=== PATIENT | male | born 1975 | race American Indian/Alaskan Native ===

== ENCOUNTER 2017-03-01 16:16 | Emergency (ER) | payer MEDICAID ==
[2017-03-01 16:22] VITALS: TEMP 97.6; O2SAT 100
[2017-03-01] MEDS ORDERED: Albuterol-Ipratrop 3 mg / 0.5 (3 ml) UD INH STA (16:24)
[2017-03-01] MEDS ORDERED: Albuterol-Ipratrop 3 mg / 0.5 (3 ml) UD ONE ×2 (16:27→17:30)
[2017-03-01] MEDS ORDERED: Albuterol 0.083% Inhal Sol (2.5 mg/3 mL) UD INH STA (17:27)
--- NOTE | 2017-03-01 17:30 | C.PDOC ---
History Of Present Illness 42 y/o male presents to ED c/o shortness of breath, and wheezing that started 2 hours ago. Pt states he ran out of his inhaler and is requesting prescription for it. Note, pt did not take his BP meds today. Denies cough, chest pain, or fever. Time Seen by Provider: 03/01/17 17:23 Chief Complaint (Nursing): Shortness Of Breath History Per: Patient History/Exam Limitations: no limitations Past Medical History Reviewed: Historical Data, Nursing Documentation, Vital Signs Vital Signs: Last Vital Signs Temp 97.6 F 03/01/17 16:19 Pulse 88 03/01/17 16:19 Resp 18 03/01/17 16:19 BP 158/106 H 03/01/17 16:19 Pulse Ox 100 03/01/17 16:19 - Medical History PMH: Asthma, Back Problems, HTN - [facility] Procedures OTHER GROUP THERAPY (08/27/12) PSYCHIAT DRUG THERAP NEC (08/27/12) Family History: States: Unknown Family Hx - Social History Hx Tobacco Use: Yes (smokes 4 cig/day for 20 years. ) Hx Alcohol Use: No Hx Substance Use: No - Immunization History Hx Tetanus Toxoid Vaccination: Yes Hx Influenza Vaccination: No Hx Pneumococcal Vaccination: No Review Of Systems Except As Marked, All Systems Reviewed And Found Negative. Constitutional: Negative for: Fever, Chills Cardiovascular: Negative for: Chest Pain, Palpitations Respiratory: Positive for: Shortness of Breath, Wheezing. Negative for: Cough Physical Exam - Physical Exam Appears: Non-toxic, No Acute Distress Skin: Normal Color, Warm, Dry Head: Atraumatic, Normacephalic Eye(s): bilateral: Normal Inspection Cardiovascular: Rhythm Regular, No Murmur Respiratory: No Rales, Rhonchi (scattered), Wheezing (scattered) Gastrointestinal/Abdominal: Soft, No Tenderness Extremity: Normal ROM, No Pedal Edema Neurological/Psych: Oriented x3, Normal Speech ED Course And Treatment O2 Sat by Pulse Oximetry: 100 Pulse Ox Interpretation: Normal Disposition - Disposition - Scribe Statement The provider has reviewed the documentation as recorded by the Scribe José Luis metz All medical record entries made by the Scribe were at my direction and personally dictated by me. I have reviewed the chart and agree that the record accurately reflects my personal performance of the history, physical exam, medical decision making, and the department course for this patient. I have also personally directed, reviewed, and agree with the discharge instructions and disposition.
--- NOTE | 2017-03-01 17:33 | C.PDOC ---
Time Seen by Provider: 03/01/17 17:23 Chief Complaint (Nursing): Shortness Of Breath Past Medical History Vital Signs: Last Vital Signs Temp 97.6 F 03/01/17 16:19 Pulse 88 03/01/17 16:19 Resp 18 03/01/17 16:19 BP 158/106 H 03/01/17 16:19 Pulse Ox 100 03/01/17 16:19 - Medical History PMH: Asthma, Back Problems, HTN - [facility] Procedures OTHER GROUP THERAPY (08/27/12) PSYCHIAT DRUG THERAP NEC (08/27/12) Family History: States: Unknown Family Hx - Social History Hx Tobacco Use: Yes (smokes 4 cig/day for 20 years. ) Hx Alcohol Use: No Hx Substance Use: No - Immunization History Hx Tetanus Toxoid Vaccination: Yes Hx Influenza Vaccination: No Hx Pneumococcal Vaccination: No ED Course And Treatment O2 Sat by Pulse Oximetry: 100 Disposition Counseled Patient/Family Regarding: Diagnosis, Smoking Cessation - Disposition Disposition Time: 17:45 Condition: STABLE Instructions: Asthma (ED), Hypertension (ED) - Clinical Impression Clinical Impression: Asthma, Hypertension
[2017-03-01] MEDS ORDERED: Albuterol 0.083% Inhal Sol (2.5 mg/3 mL) UD ONE (17:40)
[2017-03-01 18:07] VITALS: BP 149/83; PULSE 66; RESP 12
== END 2017-03-01 18:38 | disposition home or self-care (01) ==
LOC: C.ER 16:16
DX: J45.909 Unspecified asthma, uncomplicated (principal); I10 Essential (primary) hypertension; F17.210 Nicotine dependence, cigarettes, uncomplicated

== ENCOUNTER 2017-09-17 07:22 | Emergency (ER) | payer MEDICAID ==
[2017-09-17 07:36] VITALS: O2SAT 94
--- NOTE | 2017-09-17 07:53 | C.PDOC ---
History Of Present Illness 42-YEAR-OLD MALE, PRESENTS TO THE EMERGENCY DEPARTMENT [facility] COMPLAINTS OF ASTHMA EXAC THIS MORNING. PS HAS NO MDI DUE TO LACK OF INSURANCE "I HAVENT HAD A PUMP AT HOME IN A WHILE". NORMALLY USES DAILY. [place] [facility] [place] [facility] [place]. +PLEURITIC CP EXAM MILD DIST NONTOXIC HEENT NEG LUNGS DECR BS B/L OCC EXP WHEEZE +RETRACTION SPEAKING FULL SENTENCES CV RRR REMAINDE NEG Time Seen by Provider: 09/17/17 07:46 Chief Complaint (Nursing): Shortness Of Breath History Per: Patient History/Exam Limitations: no limitations Current Symptoms Are (Timing): Still Present Past Medical History Reviewed: Historical Data, Nursing Documentation, Vital Signs Vital Signs: Last Vital Signs Temp 98.1 F 09/17/17 09:54 Pulse 72 09/17/17 09:54 Resp 17 09/17/17 09:54 BP 139/80 09/17/17 09:54 Pulse Ox 94 L 09/17/17 10:11 - Medical History PMH: Asthma, Back Problems, HTN - [facility] Procedures OTHER GROUP THERAPY (08/27/12) PSYCHIAT DRUG THERAP NEC (08/27/12) Family History: States: No Known Family Hx - Social History Hx Tobacco Use: Yes (smokes 4 cig/day for 20 years. ) Hx Alcohol Use: Yes Hx Substance Use: No - Immunization History Hx Tetanus Toxoid Vaccination: Yes Hx Influenza Vaccination: No Hx Pneumococcal Vaccination: No Review Of Systems Constitutional: Negative for: Fever, Chills Cardiovascular: Negative for: Chest Pain, Palpitations Respiratory: Positive for: Shortness of Breath, Wheezing Gastrointestinal: Negative for: Nausea, Vomiting Musculoskeletal: Negative for: Back Pain Skin: Negative for: Rash Neurological: Negative for: Weakness, Numbness, Headache, Dizziness Physical Exam - Physical Exam Appears: Non-toxic, No Acute Distress Skin: Normal Color, Warm, Dry, No Rash Head: Atraumatic, Normacephalic Eye(s): bilateral: Normal Inspection Nose: Normal Oral Mucosa: Moist Lips: Normal Appearing Neck: Normal ROM Chest: Symmetrical Cardiovascular: Rhythm Regular, No Murmur Respiratory: Decreased Breath Sounds, No Accessory Muscle Use, Wheezing (B/L expiratory), Other (+RETRACTION SPEAKING FULL SENTENCES) Extremity: Normal ROM, No Pedal Edema, No Deformity, No Swelling Neurological/Psych: Oriented x3, Normal Speech ED Course And Treatment ECG: Interpreted By Me, Viewed By Me ECG Rhythm: Sinus Rhythm ECG Interpretation: No Acute Changes Rate From EC O2 Sat by Pulse Oximetry: 94 Pulse Ox Interpretation: Abnormal Reevaluation Time: 09:46 Reassessment Condition: Improved (PF 550. NARD PS FEELS BETTER COMPARED TO INITIAL) Disposition Counseled Patient/Family Regarding: Diagnosis, Need For Followup, Rx Given - Disposition Referrals: YOUR,PMD [Other] [facility] [Outside] [facility] [Outside] Disposition: HOME/ ROUTINE Disposition Time: 09:47 Condition: IMPROVED Prescriptions: Albuterol HFA [Ventolin HFA 90 mcg/actuation (8 g)] 1 puff IH Q4 #1 inhaler predniSONE [Prednisone] 60 mg PO DAILY #12 tab Instructions: Asthma, Adult (DC) Forms: [employer] (Libyan) - Clinical Impression Clinical Impression: Asthma exacerbation - Scribe Statement The provider has reviewed the documentation as recorded by the Scribe (Bibi Pacheco) All medical record entries made by the Scribe were at my direction and personally dictated by me. I have reviewed the chart and agree that the record accurately reflects my personal performance of the history, physical exam, medical decision making, and the department course for this patient. I have also personally directed, reviewed, and agree with the discharge instructions and disposition.
[2017-09-17] MEDS ORDERED: Albuterol-Ipratrop 3 mg / 0.5 (3 ml) UD ONE (07:55)
[2017-09-17] MEDS: Albuterol-Ipratrop 3 mg / 0.5 (3 ml) UD IH SCH ×3 (07:57→08:29)
[2017-09-17 09:56] VITALS: BP 139/80; PULSE 72; RESP 17; TEMP 98.1
--- NOTE | 2017-09-18 23:09 | CARD ---
APPROVED REPORT EKG Measurement Heart [id number] [id number] <Conclusion> Normal sinus rhythm Normal ECG
== END 2017-09-17 09:53 | disposition home or self-care (01) ==
LOC: C.ER 07:22
DX: J45.901 Unspecified asthma with (acute) exacerbation (principal); I10 Essential (primary) hypertension; F17.210 Nicotine dependence, cigarettes, uncomplicated

== ENCOUNTER → 2017-11-11 01:19 | Emergency (ER) | payer SELFPAY | END | disposition left against medical advice (07) | LOC: C.ER 01:19 | DX: Z02.89 Encounter for other administrative examinations (principal); R06.02 Shortness of breath ==

== ENCOUNTER 2018-01-12 04:21 | Emergency (ER) | payer SELFPAY ==
--- NOTE | 2018-01-12 05:21 | C.PDOC ---
History Of Present Illness 42 year old male patient with PMHx of asthma presents to the ER c/o nasal congestion for a few hours. Patient reports he also has cough. Patient denies fever, nausea, vomiting, diarrhea, abdominal pain, sob, and chest pain. Time Seen by Provider: 01/12/18 04:29 Chief Complaint (Nursing): ENT Problem History Per: Patient History/Exam Limitations: no limitations Onset/Duration Of Symptoms: Hrs Current Symptoms Are (Timing): Still Present Past Medical History Reviewed: Historical Data, Nursing Documentation, Vital Signs Vital Signs: Last Vital Signs Temp 98.7 F 01/12/18 04:37 Pulse 82 01/12/18 04:37 Resp BP 148/87 01/12/18 04:37 Pulse Ox 98 01/12/18 04:37 - Medical History PMH: Asthma, Back Problems, HTN - [facility] Procedures OTHER GROUP THERAPY (08/27/12) PSYCHIAT DRUG THERAP NEC (08/27/12) Family History: States: Unknown Family Hx - Social History Hx Tobacco Use: Yes (smokes 4 cig/day for 20 years. ) Hx Alcohol Use: Yes Hx Substance Use: No - Immunization History Hx Tetanus Toxoid Vaccination: Yes Hx Influenza Vaccination: No Hx Pneumococcal Vaccination: No Review Of Systems Except As Marked, All Systems Reviewed And Found Negative. Constitutional: Negative for: Fever ENT: Positive for: Nose Congestion Cardiovascular: Negative for: Chest Pain Respiratory: Positive for: Cough Gastrointestinal: Negative for: Nausea, Vomiting, Abdominal Pain, Diarrhea Physical Exam - Physical Exam Appears: Well, Non-toxic, No Acute Distress Skin: Normal Color, Warm, Dry Head: Normacephalic Eye(s): bilateral: Normal Inspection, EOMI Ear(s): Bilateral: Normal Nose: Other (congestion) Oral Mucosa: Moist Throat: Normal, No Erythema, No Exudate, No Drooling Neck: Normal ROM, Supple Lymphatic: Normal Exam Chest: Symmetrical, No Deformity Cardiovascular: Rhythm Regular Respiratory: Normal Breath Sounds, No Accessory Muscle Use Extremity: Normal ROM Neurological/Psych: Oriented x3, Normal Speech ED Course And Treatment O2 Sat by Pulse Oximetry: 98 (RA) Pulse Ox Interpretation: Normal Progress Note: Plans: -- Patient offered nebulize but declined. REquests discharge with decongestant. Patient was instructed to follow up with physician in 1-2 days for further evaluation. Disposition - Disposition Disposition: HOME/ ROUTINE Disposition Time: :15 Condition: STABLE Additional Instructions: Drink plenty of fluids. Follow up with the PMD in 1-2 days. Return to ER if symptoms persist or worsen. 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 - Scribe Statement The provider has reviewed the documentation as recorded by the Zoe Berry Do
[2018-01-12 06:00] VITALS: BP 166/85; PULSE 86; RESP 16; TEMP 97.5
[2018-01-15 15:44] VITALS: O2SAT 98
== END 2018-01-12 06:00 | disposition home or self-care (01) ==
LOC: C.ER 04:21
DX: J06.9 Acute upper respiratory infection, unspecified (principal)

== ENCOUNTER 2018-05-24 16:04 | Emergency (ER) | payer SELFPAY ==
[2018-05-24 16:13] VITALS: BP 144/91; PULSE 90; RESP 18; TEMP 98.3; O2SAT 94
[2018-05-24] MEDS ORDERED: Albuterol-Ipratrop 3 mg / 0.5 (3 ml) UD INH STA ×3 (17:22→19:04)
[2018-05-24] MEDS ORDERED: Albuterol-Ipratrop 3 mg / 0.5 (3 ml) UD ONE ×3 (17:28→19:06)
--- NOTE | 2018-05-24 18:23 | C.PDOC ---
History Of Present Illness 43 y/o male pt with hx of asthma presents to the ER c/o cold sx and worsening asthma. Associated sx includes cough and wheezing. Pt reports he ran out of his asthma pump. Pt denies fever and does not have any other complaints or associated sx. Time Seen by Provider: 05/24/18 17:15 Chief Complaint (Nursing): Cough, Cold, Congestion History Per: Patient History/Exam Limitations: no limitations Onset/Duration Of Symptoms: Days Current Symptoms Are (Timing): Still Present Past Medical History Reviewed: Historical Data, Nursing Documentation, Vital Signs Vital Signs: Last Vital Signs Temp 98.3 F 05/24/18 16:13 Pulse 90 05/24/18 16:13 Resp 18 05/24/18 16:13 BP 144/91 H 05/24/18 16:13 Pulse Ox 94 L 05/24/18 16:13 - Medical History PMH: Asthma, Back Problems, HTN - [facility] Procedures OTHER GROUP THERAPY (08/27/12) PSYCHIAT DRUG THERAP NEC (08/27/12) Family History: States: Unknown Family Hx - Social History Hx Tobacco Use: Yes (smokes 4 cig/day for 20 years. ) Hx Alcohol Use: Yes Hx Substance Use: No - Immunization History Hx Tetanus Toxoid Vaccination: No Hx Influenza Vaccination: No Hx Pneumococcal Vaccination: No Review Of Systems Constitutional: Positive for: Other (cold sx ). Negative for: Fever Eyes: Negative for: Pain ENT: Negative for: Ear Pain Cardiovascular: Negative for: Chest Pain Respiratory: Positive for: Cough, Wheezing, Other (worsening asthma ). Negative for: Shortness of Breath Gastrointestinal: Negative for: Nausea, Vomiting Physical Exam - Physical Exam Appears: Non-toxic, Other (uncomfortable ) Skin: Warm, Dry Head: Normacephalic Eye(s): bilateral: Normal Inspection Oral Mucosa: Moist Chest: Symmetrical Cardiovascular: Rhythm Regular Respiratory: No Rales, No Rhonchi, No Stridor, Wheezing (b/l expiratory wheezing ) Gastrointestinal/Abdominal: Soft, No Tenderness Neurological/Psych: Oriented x3, Normal Speech, Normal Cognition ED Course And Treatment O2 Sat by Pulse Oximetry: 94 (RA) Pulse Ox Interpretation: Normal Medical Decision Making Medical Decision Making: Plans: -- CXR -- albuterol -- prednisone pt was give several neb treatments and had cxr done. pt not found in assigned area or elsewhere in ed, eloped from emergency room. . 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 - Scribe Statement The provider has reviewed the documentation as recorded by the Zoe Berry Do All medical record entries made by the Scribe were at my direction and personally dictated by me. I have reviewed the chart and agree that the record accurately reflects my personal performance of the history, physical exam, medical decision making, and the department course for this patient. I have also personally directed, reviewed, and agree with the discharge instructions and disposition.
--- NOTE | 2018-05-25 15:03 | RAD ---
Date of service: 05/24/2018 HISTORY: cough asthma COMPARISON: 03/01/2016 TECHNIQUE: Chest PA and lateral FINDINGS: LUNGS: No active pulmonary disease. PLEURA: No significant pleural effusion identified. No pneumothorax apparent. CARDIOVASCULAR: No aortic atherosclerotic calcification present. Normal cardiac size. No pulmonary vascular congestion. OSSEOUS STRUCTURES: No significant abnormalities. VISUALIZED UPPER ABDOMEN: Normal. OTHER FINDINGS: None. IMPRESSION: No active disease.
== END 2018-05-24 19:50 | disposition left against medical advice (07) ==
LOC: C.ER 16:04
DX: J45.901 Unspecified asthma with (acute) exacerbation (principal); F17.210 Nicotine dependence, cigarettes, uncomplicated

== ENCOUNTER 2018-06-08 01:31 | Emergency (ER) | payer SELFPAY ==
[2018-06-08] MEDS ORDERED: Albuterol-Ipratrop 3 mg / 0.5 (3 ml) UD ONE ×2 (01:41→03:35)
--- NOTE | 2018-06-08 01:59 | C.PDOC ---
History Of Present Illness Patient presents with shortness of breath, wheezing. Has been treated for pneumonia last week. Patient still smokes ppd. Speaking in complete sentences. tolerating po Time Seen by Provider: 06/08/18 01:59 Chief Complaint (Nursing): Shortness Of Breath History Per: Patient History/Exam Limitations: no limitations Onset/Duration Of Symptoms: Hrs Current Symptoms Are (Timing): Still Present Initiating Event: Upper Respiratory Illness Exacerbating Factor(s): Coughing Current Respiratory Medications: See Home Med List Severity: Moderate Pain Scale Rating Of: 4 Associated Symptoms: denies: Fever, Chills Reports Recently: Seen In ED, Treated By A Physician Recent travel outside of the [place]: No Additional History Per: Patient Past Medical History Reviewed: Historical Data, Nursing Documentation, Vital Signs Vital Signs: Last Vital Signs Temp 98.7 F 06/08/18 01:39 Pulse 73 06/08/18 01:39 Resp 26 H 06/08/18 01:39 BP 143/83 06/08/18 01:39 Pulse Ox 96 06/08/18 01:39 - Medical History PMH: Asthma, Back Problems, HTN Denies: Chronic Kidney Disease - [facility] Procedures OTHER GROUP THERAPY (08/27/12) PSYCHIAT DRUG THERAP NEC (08/27/12) Family History: States: Unknown Family Hx, Diabetes, Hypertension - Social History Hx Tobacco Use: Yes (smokes 4 cig/day for 20 years. ) Hx Alcohol Use: Yes Hx Substance Use: No - Immunization History Hx Tetanus Toxoid Vaccination: No Hx Influenza Vaccination: No Hx Pneumococcal Vaccination: No Review Of Systems Constitutional: Negative for: Fever, Chills ENT: Negative for: Throat Pain Cardiovascular: Negative for: Chest Pain Respiratory: Positive for: Shortness of Breath, Wheezing Gastrointestinal: Negative for: Abdominal Pain Musculoskeletal: Negative for: Back Pain Skin: Negative for: Rash Neurological: Negative for: Weakness Psych: Negative for: Anxiety Physical Exam - Physical Exam Appears: Non-toxic, No Acute Distress Skin: Warm, Dry Oral Mucosa: Moist Neck: Supple Chest: Symmetrical Cardiovascular: Rhythm Regular Respiratory: Decreased Breath Sounds, No Rales, No Rhonchi, Wheezing Gastrointestinal/Abdominal: Soft, No Tenderness Back: No CVA Tenderness Extremity: Normal ROM Neurological/Psych: Oriented x3 Gait: Steady ED Course And Treatment - Laboratory Results Result Diagrams: 06/08/18 03:24 06/08/18 03:24 ECG: Interpreted By Me, Viewed By Me ECG Rhythm: Sinus Rhythm (64), Nonspecific Changes O2 Sat by Pulse Oximetry: 96 Pulse Ox Interpretation: Normal - Radiology CXR: Interpreted by Me, Viewed By Me CXR Interpretation: Yes: Infiltrates (?lll), Other (somewhat improved from 05/24/18). No: Fracture, Pnemothorax Reevaluation Time: 05:45 Reassessment Condition: Improved Disposition Counseled Patient/Family Regarding: Studies Performed, Diagnosis, Need For Followup - Disposition Referrals: [facility] [Outside] [facility] [Outside] Disposition: HOME/ ROUTINE Disposition Time: 05:46 Condition: FAIR Additional Instructions: Please return if symptoms recur Prescriptions: Albuterol HFA [Ventolin HFA 90 mcg/actuation (8 g)] 2 puff IH [id number] #1 puff Prednisone [Deltasone] 20 mg PO DAILY #5 tablet Instructions: Asthma, Adult (DC) Forms: [employer] (Dominican) - Clinical Impression Clinical Impression: Asthma exacerbation
[2018-06-08] MEDS ORDERED: Sodium Chloride 0.9% 1,000 ML IV ONE (03:05)
[2018-06-08 03:27] LABS: BASO # 0.1 K/uL (0.0-0.2); BASO % 1.4 % (0.0-2.0); EOS # 0.7 K/uL (0.0-0.7); EOS % 15.6 % (0.0-4.0); HEMOGLOBIN 12.7 g/dL (12.0-18.0); LYMPH # 2.1 K/uL (1.0-4.3); LYMPH % 44.9 % (20.0-40.0); MEAN CELL VOLUME 94.1 fL (80.0-94.0); MEAN CORPUSCULAR HEMOGLOBIN 30.8 pg (27.0-31.0); MEAN CORPUSCULAR HGB CONC 32.8 g/dL (33.0-37.0); MEAN PLATELET VOLUME 6.6 fL (7.2-11.7); MONO # 0.4 K/uL (0.0-0.8); MONO % 8.5 % (0.0-10.0); NEUT # 1.4 K/uL (1.8-7.0); NEUT % 29.6 % (50.0-75.0); RBC 4.11 Mil/uL (4.40-5.90); RED CELL DISTRIBUTION WIDTH 12.6 % (11.5-14.5); WHITE BLOOD COUNT 4.7 K/uL (4.8-10.8)
[2018-06-08 03:38] LABS: BLOOD UREA NITROGEN 23 mg/dL (9-20); CALCIUM 8.7 mg/dl (8.6-10.4); GFR NON-AFRICAN AMERICAN > 60
[2018-06-08] MEDS: Albuterol-Ipratrop 3 mg / 0.5 (3 ml) UD IH SCH (03:42)
[2018-06-08 03:47] LABS: VENOUS BLOOD GAS BASE EXCESS 1.8 mmol/L (0.0-2.0); VENOUS BLOOD GAS PCO2 53 mmHg (40-60); VENOUS BLOOD GAS PO2 38 mm/Hg (30-55); VENOUS BLOOD PH 7.34 (7.32-7.43)
[2018-06-08 06:37] VITALS: BP 147/71; PULSE 88; RESP 20; TEMP 98.3; O2SAT 97
--- NOTE | 2018-06-08 10:27 | RAD ---
Date of service: 06/08/2018 PROCEDURE: CHEST RADIOGRAPH, 1 VIEW HISTORY: SOB COMPARISON: Comparison is made with 05/24/2018 FINDINGS: LUNGS: Clear. PLEURA: No pneumothorax or pleural fluid seen. CARDIOVASCULAR: No aortic atherosclerotic calcification present. Normal. OSSEOUS STRUCTURES: No significant abnormalities. VISUALIZED UPPER ABDOMEN: Normal. OTHER FINDINGS: None. IMPRESSION: No active disease.
--- NOTE | 2018-06-09 12:50 | CARD ---
APPROVED REPORT Date of service: 06/08/2018 EKG Measurement Heart [id number] CT 200P74 [id number] <Conclusion> Normal sinus rhythm Normal ECG
== END 2018-06-08 06:37 | disposition home or self-care (01) ==
LOC: C.ER 01:31
DX: J45.901 Unspecified asthma with (acute) exacerbation (principal)
CPT/HCPCS: 71045; 80048; 82803; 85025; 93005; 96374; 99285; J2930; J7030